=== PATIENT | female | born 1960 | race Caucasian/White ===

== ENCOUNTER 2019-07-05 09:49 | Inpatient (IN) | payer OTHER ==
[~2019-07-05] VITALS: Ht 165.1 cm; Wt 88.9 kg
--- NOTE | 2019-07-05 10:03 | NUR ---
BROUGHT IN BY AMBULANCE AWAKE ALERT ORIENTED,C/O CHEST PAIN WITH SOB STARTED SATURDAY,TODAY AT 8 AM STARTED TO WORSEN, PT WAS SEEN 3 TIMES IN [facility] FOR SAME COMPLAINTS WITHIN 2 WEEKS, LAST WAS ON SATURDAY
[2019-07-05 10:17] LABS: CALCIUM 8.2 mg/dL (8.5-10.1); CARBON DIOXIDE 27.8 mmol/L (21-32); CREATININE SERUM 1.1 mg/dL (0.6-1.0); POTASSIUM SERUM 4.9 mmol/L (3.5-5.1)
[2019-07-05 10:22] LABS: BILIRUBIN TOTAL 0.3 mg/dL (0.20-1.00); TOTAL PROTEIN, SERUM 6.6 g/dL (6.4-8.2)
[2019-07-05 10:25] LABS: ALBUMIN 2.8 g/dL (3.4-5.0); BASOPHIL % 0.7 % (0-2); PLATELET COUNT 338 x10^3mcL (130-400)
[2019-07-05 10:28] LABS: RED CELL DISTRIBUTION WIDTH 16.3 % (11.5-14.5)
--- NOTE | 2019-07-05 11:00 | NUR ---
C/O LOWER BACK PAIN MEDICATED WITH NORCO
--- NOTE | 2019-07-05 14:33 | NUR ---
BLOOD DRAWN BY LAB FOR REPEAT TROPONEN LEVEL, RESTING IN BED, WAITING CT REGAN CHEST
--- NOTE | 2019-07-05 15:30 | NUR ---
TO CT SCAN FOR CT ANGIO TO CHEST,PER FRINGE KNOTTER IV INFILTRATED CANNOT USE IT, RN WENCESLAO TRIED 3 TIMES UNSUCCESSFUL,DR [place] AWARE FOR ADMISSION STATED MINIMAL CHEST PAIN,GUARDIAN FAMILY MEMBER IN SR, RESP. EASY NOT IN DISTRESS
--- NOTE | 2019-07-05 16:10 | NUR ---
PT HAS LT BELOW KNEE AMPUTATION DUE TO DIABETES
--- NOTE | 2019-07-05 16:22 | NUR ---
PT REQUESTED ED TO INFORM LINDSAY OF ADMISSION SO RANCHOEDDIE WONT THROW HER PERSONAL BELONGINGS AWAY. PER KWAME FROM [facility], HER BED AND BELONGINGS WILL HELD UNTIL SHE IS DISCHARGED BACK TO [facility]. PT INFORMED.
[2019-07-05] MEDS ORDERED: LEXAPRO20 MG PO (16:27)
[2019-07-05] MEDS ORDERED: FERROUS SULFAT325 M2 PO (16:27)
[2019-07-05] MEDS ORDERED: PEPCID20 MG PO (16:27)
[2019-07-05] MEDS ORDERED: DUL10S RC (16:28)
[2019-07-05] MEDS ORDERED: LIPI20 PO (16:28)
[2019-07-05] MEDS ORDERED: COLACE100 MG PO (16:29)
[2019-07-05] MEDS ORDERED: PULMICORT0.25 MG/2 (16:29)
[2019-07-05] MEDS ORDERED: BROVANA15 MCG/2 M NEB (16:30)
[2019-07-05] MEDS ORDERED: ABILIFY5 M1 PO (16:30)
[2019-07-05] MEDS ORDERED: ASPIR LOW81 MG (16:31)
[2019-07-05] MEDS ORDERED: PHARMASSURE VI500 MG PO (16:31)
[2019-07-05] MEDS ORDERED: NORCO1 TA2 PO (16:33)
[2019-07-05] MEDS ORDERED: INSULIN ASPART (16:37)
[2019-07-05] MEDS ORDERED: DUONEB (16:39)
[2019-07-05] MEDS ORDERED: VENOFER20 MG/ML IV (16:40)
--- NOTE | 2019-07-05 18:05 | NUR ---
RECEIVED PT FROM ED VIA ALONSO, CAME IN DUE TO CHEST PAIN X1 DAY AND SOB SINCE SATURDAY. AAOX4. DENIES HEADACHE/DIZZINESS. ABLE TO FOLLOW COMMANDS. C/O MILD SOB, O2 SAT=95% ON 2LPM/NC. LUNG SOUNDS DIMINISHED ON AUSCULTATION. DENIES CHEST PAIN/PRESSURE. SR ON THE MONITOR. C/O 7/10 LOWER BACK PAIN. HAS HISTORY OF LEFT BKA. DENIES ABDOMINAL DISCOMFORT. VOIDS. IV SITE ON THE RIGHT THUMB GAUGE 22 IS PATENT AND INTACT. SIDE RAILS UPX2. CALL LIGHT ON REACH. ENDORSED TO PRIMARY NURSE MARCELL FOR CONTINUITY OF CARE
[2019-07-05 18:11] VITALS: BP 139/72
[2019-07-05 18:19] VITALS: Ht 165.1 cm; Wt 88.9 kg
--- NOTE | 2019-07-05 18:53 | NUR ---
SITING UP IN BED HAVING DINNER. MORPHINE 1MG IVP GIVEN FOR BACK PAIN, NO ADVERSE REACTION NOTED. IVF NS AT 50ML/HR INFUSING WELL TO RIGHT THUMP IV SITE. CALL LIGHT INSTRUCTED AND PLACED WITHIN EASY REACH. SIDERAILS UP X2.
[2019-07-05 19:20] VITALS: BP 128/68
--- NOTE | 2019-07-05 20:15 | NUR ---
REPORT GIVEN TO KEVIN DE LEON. ALL QUESTIONS/CONCERNS ADDRESSED. ENDORSING ALL CARE
--- NOTE | 2019-07-05 20:20 | NUR ---
RECEIVED PT FROM HANS RN, PT LAYING DOWN IN BED. NO ACUTE DISTRESS NOTED. PT DENIES ANY PAIN AT THIS TIME. BED AT LOWEST SETTING. SIDE RAILS X2 UP. CALL LIGHT WITHING REACH. [facility]
[2019-07-05 20:23] VITALS: BP 139/72
--- NOTE | 2019-07-05 21:10 | NUR ---
CALLED DR BRADSHAW REGARDING PT HOME MED ARFORMOTERAL. PT FAMILY UNLBLE TO BRING IT FROM HOME, PHARMACY DOES NOT HAVE MED. PER DR BRADSHAW OKAY TO NOT GIVE IT AND ASK FAMILY TO BRING IT TOMORROW. NO NEW ORDERS RECEIVED. WILL CONTINUE TO MONITOR.
--- NOTE | 2019-07-06 00:08 | NUR ---
PT LAYING DOWN IN BED BE WITH EYES CLOSED. BREATHING EVEN AND [id number] ON 2L NC. HOB ELEVATED. NO ACUTE DISTRESS NOTED. BED AT LOWEST SETTING. SIDE RAILS X2 UP. CALL LIGHT WITHING REACH. WILL CONTINUE TO MONITOR.
[2019-07-06 04:48] VITALS: BP 149/63
--- NOTE | 2019-07-06 06:36 | NUR ---
PT SLEPT WELL THROUGHOUT THE NIGHT, BREATHING EVEN AND UNLABORED ON 2L NC. NO ACUTE DISTRESS NOTED. NO SIGNIFICANT CHANGE DURING SHIFT. ALL NEEDS ASSESSED AND ATTENDED TO. IV TO RIGHT THUMB INFUSING NS AT 50ML/HR. SITE WNL. BED AT LOWEST SETTING. SIDE RAILS X2 UP. CALL LIGHT WITHING REACH. WILL ENDORSE CARE TO AM NURSE.
--- NOTE | 2019-07-06 07:01 | NUR ---
PT C/O 06/23 PAIN AT HER BACK, NO ALLEVIATING FACTOR. MEDICATED WITH PRN MORPHINE PER DEC. WILL ENDORSE CARE TO AM NURSE.
[2019-07-06 07:50] LABS: CALCIUM 8.4 mg/dL (8.5-10.1); CARBON DIOXIDE 22.3 mmol/L (21-32); CREATININE SERUM 1.2 mg/dL (0.6-1.0); POTASSIUM SERUM 5.5 mmol/L (3.5-5.1)
[2019-07-06 07:53] LABS: BASOPHIL % 0.1 % (0-2); PLATELET COUNT 330 x10^3mcL (130-400)
[2019-07-06 08:07] VITALS: BP 140/64
[2019-07-06 08:14] LABS: RED CELL DISTRIBUTION WIDTH 15.9 % (11.5-14.5)
--- NOTE | 2019-07-06 09:03 | NUR ---
NORCO GIVEN FOR C/O BACK PAIN 05/23. ACCESS TO RT THUMB INFILTRATED, SWELLING OBSERVED, IV DC'D, COLD PACK PROVIDED AND EXTREMITY ELEVATED ON PILLOW. WILL CONT TO MONITOR.
[2019-07-06 12:05] VITALS: BP 147/70
--- NOTE | 2019-07-06 14:40 | NUR ---
PATIENT C/O SEVERE BACK PAIN AND REQUESTING FOR MORPHINE, NO IV ACCESS YET PATIENT HARD STICK, PATIENT REQUESTING FOR NURSES TO TRY TO PLACE IV. AFTER SEVERAL ATTEMPTS, IV PLACED TO RFA 22G, FLUSHING WELL. MORPHINE GIVEN. WILL CONT TO MONITOR.
--- NOTE | 2019-07-06 15:22 | NUR ---
CONSENT OBTAINED FROM PATIENT FOR MIDLINE CATHETER INSERTION. CHARTED.
[2019-07-06 16:50] VITALS: BP 141/66
--- NOTE | 2019-07-06 16:53 | NUR ---
MIDLINE IV INSERTED TO OVIDIO BY PICCLINE NURSE MARIBELL AT BEDSIDE. TOLERATED WELL. SITE WNL. PER PICC LINE NURSE, NO XRAY NEEDED AND IV OKAY TO USE. TED BOWERS MADE AWARE, ORDER IN PLACE FOR OKAY TO USE MIDLINE IV.
--- NOTE | 2019-07-06 17:15 | NUR ---
PATIENT REPORTS PAIN TO BACK PERSISTENT AND MORPHINE WASN'T VERY EFFECTIVE, NORCO MORE EFFECTIVE FOR PAIN. NORCO GIVEN. WILL CONT TO MONITOR.
--- NOTE | 2019-07-06 18:30 | NUR ---
PATIENT GOING DOWN VIA WHEELCHAIR FOR VQ SCAN, IV HEPLOCKED. NO SIGN OF ACUTE DISTRESS.
--- NOTE | 2019-07-06 19:25 | NUR ---
PATIENT BACK FROM VQ SCAN, TELE PLACED. NS FLUID RESUMED. IV SITES WNL. DENIES PAIN OR DISCOMFORT AT HIS TIME. BEDSIDE REPORT GIVEN TO NOC NURSE TO ENDORSE CARE.
--- NOTE | 2019-07-06 19:50 | NUR ---
PT. JUST ARRIVED BACK TO UNIT, COMPLETED VQ SCAN. PT. IS AWAKE, ALERT, ORIENTED X4. DENIES HEADACHE OR DIZZINESS. BREATH SOUNDS CLEAR THROUGHOUT LUNG HAIDER, BLL SLIGHTLY DIMINISHED. RESP. EVEN, UNLABORED. NO SOB NOTED. PT. ON RA. NSR ON TELE #5. DENIES ANY CHESTPAIN OR DISCOMFORT. PEDAL PULSE TO RLE MODERATE. ABD. SOFT AND ROUND, BOWEL SOUNDS ACTIVE. DENIES NAUSEA. DENIES ABD. PAIN. MIDLINE INTACT TO RUE, PERIPHERAL LINE TO RFA INTACT. IV RESTARTED, NS AT 50CC/HR. RLE BKA INTACT. PT. C/O MILD BACK PAIN. CALL LIGHT PLACED WITHIN REACH.
[2019-07-06 20:55] VITALS: BP 149/88
--- NOTE | 2019-07-06 21:18 | NUR ---
PRN MORPHINE IVP GIVEN FOR C/O LOWER BACK PAIN, 04/22. WILL MONITOR.
--- NOTE | 2019-07-07 01:58 | NUR ---
PT. DOZING INTERMITTENTLY. NO FURTHER COMPLAINTS AT THIS TIME. CALL LIGHT WITHIN REACH. WILL CONTINUE TO MONITOR.
[2019-07-07 05:12] VITALS: BP 150/64
--- NOTE | 2019-07-07 05:46 | NUR ---
PRN NORCO GIVEN FOR C/O LOWER BACK PAIN. PT. WATCHING TV AT THIS TIME. APPEARS COMFORTABLE. NO SIGNS OF DISTRESS. CALL LIGHT WITHIN REACH.
[2019-07-07 09:15] VITALS: BP 150/68
--- NOTE | 2019-07-07 10:53 | NUR ---
AAOX4. CTA BILATERALLY. REMAINS ON RA WITH O2 SAT OF 95%. TELE 5 NSR. NORMOACTIVE BSX4. VOIDS USING COMMODE W/ ASSISTANCE. LIMITED MOVEMENT ACTIVITY, LEFT BKA. PERIPHERAL PULSES PALPABLE, NO EDEMA. COOPERATIVE. MIDLINE CATHETER RUE, PATENT, CDI.
[2019-07-07 11:51] VITALS: BP 176/82
[2019-07-07 13:17] VITALS: BP 176/82
--- NOTE | 2019-07-07 13:18 | NUR ---
AT 1130 IDANIA DE LEON AND I DID THE BLOOD SUGAR CHECK, THE FIST RESULT WAS 427, WE DID A REPEAT AND THE SECOND RESULT WAS 314. I NOTIFIED ANGELA JEAN, AND SHE SAID TO GIVE THE SLIDING SCALE WITH THE 314 BLOOD SUGAR.
[2019-07-07 17:17] VITALS: BP 124/79
--- NOTE | 2019-07-07 18:28 | NUR ---
AAOX4, COOPERATIVE. TELE# 5, NSR. PERIPHERAL PULSES PALPABLE, NO SIGNS OF EDEMA. ON HEPARIN SQ. CTA BILATERALLY, ON RA W/ O2 SAT OF 99. NORMOACTIVE BOWEL SOUNDS, NO STOOL. USE OF BEDSIDE COMMODE, W/ LIMITED MOBILITY DUE TO LEFT BKA. C/O LOWER BACK PAIN THROUGHOUT SHIFT. PATIENT STATES REDUCED PAIN AFTER ADMINISTRATION. MIDLINE CATHETER SITE CDI.
--- NOTE | 2019-07-07 18:32 | NUR ---
NURSING CO-SIGN THE DOCUMENTATION ENTERED BY THE IP HAS BEEN REVIEWED. REVIEWED/CO-SIGNED BY: Ann-Marie Javier DOCUMENTATION DONE BY: IDANIA ESCOBAR RN.
--- NOTE | 2019-07-07 19:45 | NUR ---
PT. AWAKE, ALERT, ORIENTED X4. DENIES HEADACHE OR DIZZINESS. BREATH SOUNDS CLEAR THROUGHOUT LUNG HAIDER, RESP. EVEN, UNLABORED. NO SOB NOTED. PT. ON RA. DENIES CHESTPAIN, NSR ON THE MONITOR. NO EDEMA TO BLE. PEDAL PULSES MODERATE TO RLE. LLE BKA. MIDLINE NOTED TO OVIDIO. ABD. SOFT AND ROUND, BOWEL SOUNDS ACITVE. DENIES ABD. PAIN, DENIES NAUSEA. CALL LIGHT WITHIN REACH.
[2019-07-07 20:41] VITALS: BP 143/68
[2019-07-08] VITALS (7 sets, daily range): BP systolic 150–186; BP diastolic 58–87
--- NOTE | 2019-07-08 02:31 | NUR ---
PT. AWAKENED AND ASSISTED TO BEDSIDE COMMODE AND BACK TO BED. C/O PAIN, 7/10 IN LOWER BACK. PRN MORPHINE IVP GIVEN ORDERED. WILL MONITOR.
--- NOTE | 2019-07-08 05:36 | NUR ---
PT. DOZING INTERMITTENTLY. BLOOD SUGAR CHECKED. MEDICATIONS GIVEN. NO C/O PAIN AT THIS TIME. IVF INFUSING WELL. CALL LIGHT WITHIN REACH. WILL ENDORSE PT.CARE TO INCOMING NURSE.
[2019-07-08 06:47] LABS: BASOPHIL % 0.1 % (0-2); PLATELET COUNT 301 x10^3mcL (130-400)
[2019-07-08 06:53] LABS: CALCIUM 8.3 mg/dL (8.5-10.1); CARBON DIOXIDE 21.7 mmol/L (21-32); CREATININE SERUM 1.2 mg/dL (0.6-1.0); POTASSIUM SERUM 5.1 mmol/L (3.5-5.1)
[2019-07-08 06:57] LABS: RED CELL DISTRIBUTION WIDTH 15.8 % (11.5-14.5)
--- NOTE | 2019-07-08 07:20 | NUR ---
RECEIVED PT FROM NIGHT NURSE. PT IS LAYING DOWN IN BED WITH HOB UP RESTING. PT LOOKS TO BE IN NO ACUTE DISTRESS AT THIS TIME. IV SITE PATENT WITH NO SIGNS OF ERYTHEMA OR SWELLING WITH IV FLUIDS INFUSING. RESPIRATIONS EVEN AND UNLABORED ON ROOM AIR. TELE MONITOR 5 PRESENT. CALL LIGHT WITHIN REACH. WILL CONTINUE TO MONITOR.
--- NOTE | 2019-07-08 11:20 | NUR ---
PT COMPLAINING OF PAIN 8/10 TO THE BACK. PT REQUESTING PAIN MEDICATION. MADE PT COMFORTABLE IN BED, WILL MEDICATE ACCORDING TO EMAR.
--- NOTE | 2019-07-08 11:45 | NUR ---
TED MILLER MADE AWARE OF PT'S HIGH BLOOD PRESSURE
--- NOTE | 2019-07-08 13:00 | NUR ---
PT IS LAYING DOWN IN BED RESTING. PT LOOKS TO BE IN NO ACUTE DISTRESS, PT STATES PAIN MEDICAITON EFFECTIVE AND IS 5/10 AND IS TOLERABLE AT THIS TIME. RECHECKED BLOOD PRESSUER AND HAS DECREASED AND IS AT 159/87. WILL CONTINUE TO MONITOR
--- NOTE | 2019-07-08 18:30 | NUR ---
PT IS SITTING UP IN BED. PT LOOKS TO BE IN NO ACUTE DISTRESS AT THIS TIME. PT REQUESTING TO HAVE SHEETS CHANGED. PT ABLE TO MOVE TO BEDSIDE CHAIR WITH ASSISTANCE. CHANGED PT'S SHEETS AND GOWN AND ASSISTED PT BACK TO BED. PT MADE COMFORTABLE IN BED. IV SITE PATENT WITH NO SIGNS OF ERYTHEMA OR SWELLING WITH IV FLUIDS INFUSING. BED IN LOWEST POSITION, CALL LIGHT WITHIN REACH. WILL ENDORSE TO ONCOMING SHIFT.
--- NOTE | 2019-07-08 19:15 | NUR ---
RECEIVED PT FROM PREVIOUS SHIFT NURSE. PT AOX4, DENIES CAMPOS/DIZZINESS. ON TELE #5, NSR, HR 82. DENIES CP/PRESSURE. DENIES SOB/DIFFICULTY BREATHING, ON RA. L. BKA WITH GEN WEAKNESS. IV TO OVIDIO (MIDLINE), INTACT AND PATENT. BED IN LOWEST POSITION. CALL LIGHT WITHIN REACH. WILL CONTINUE TO MONITOR.
--- NOTE | 2019-07-08 21:13 | NUR ---
PT REPORTS FEELING MICHOACANO, REQUESTING SOMETHING TO HELP HER RELAX. DR. SCOTTED PAGED. AWAITING CALL BACK.
--- NOTE | 2019-07-09 02:52 | NUR ---
PT RESTING IN BED. RR EVEN AND UNLABORED. IN NO ACUTE DISTRESS. CALL LIGHT WITHIN REACH. BED IN LOWEST POSITION. WILL CONTINUE TO MONITOR.
[2019-07-09 05:31] VITALS: BP 172/75
--- NOTE | 2019-07-09 06:26 | NUR ---
PT BP 172/75 HR 66, DENIES ANY PAIN/DISCOMFORT AT THIS TIME. DR. EVANGELISTA NOTIFIED.
--- NOTE | 2019-07-09 07:22 | NUR ---
REPORT TAKEN AT THE BEDSIDE FROM FRUIT BAR MAKER NURSE, PATIENT AWAKE AND ALERT, IN NO DISTRESS AT THIS TIME, WILL CONTINUE TO MONITOR
[2019-07-09 08:25] VITALS: BP 153/74
[2019-07-09 11:15] VITALS: BP 153/74
[2019-07-09 12:01] VITALS: BP 169/82
[2019-07-09 12:46] VITALS: BP 169/82
--- NOTE | 2019-07-09 14:07 | NUR ---
REPORT GIVEN TO RONNIE CORDOVA [facility], [place] FLOOR TIME SCHEDULED FOR [phone]
--- NOTE | 2019-07-09 14:22 | NUR ---
MIDLINE TO RIGHT UPPER ARM TO BE LEFT IN PLACE PER TED WALTON.
--- NOTE | 2019-07-09 14:47 | NUR ---
REPORT GIVEN TO [facility] AT THE BEDSIDE, PATIENT SIGNED DC PAPERWORK, BELONGINGS AT THE BEDSIED WITH THE PATIENT AND GIVEN TO TRANSPORT TEAM. TELE RETURNED TO [place] [facility].
--- NOTE | 2019-07-09 15:02 | NUR ---
PHYSICAL THERAPY DAILY NOTES CO-SIGN All documentation done by the Computer Project Manager for 07/09/19 has been reviewed. I agree with the documentation. Reviewed/Co-Signed by: Phyllis Donis PT Documentation Done by:ESTEE ALEXANDRE PTA
== END 2019-07-09 14:50 | DRG 140 ==
LOC: ED 09:49 → DU 16:47
PROVIDERS: General Practice; ADMIT Internal Medicine
DX: J44.1 Chronic obstructive pulmonary disease with (acute) exacerbation (principal); E11.22 Type 2 diabetes mellitus with diabetic chronic kidney disease; E44.0 Moderate protein-calorie malnutrition; I13.0 Hypertensive heart and chronic kidney disease with heart failure and stage 1 through stage 4 chronic kidney disease, or unspecified chronic kidney disease; E66.01 Morbid (severe) obesity due to excess calories; I50.32 Chronic diastolic (congestive) heart failure; N18.2 Chronic kidney disease, stage 2 (mild); Z68.34 Body mass index [BMI] 34.0-34.9, adult; Z88.8 Allergy status to other drugs, medicaments and biological substances; Z89.512 Acquired absence of left leg below knee; Z71.3 Dietary counseling and surveillance; Z90.710 Acquired absence of both cervix and uterus
CPT/HCPCS: 78598; 82962; 83880; 85378; 97110-GP; 97116-GP; A9540; C1751; C9113; G0378; J1644; J2060; J2270; J2920; J7030; Q0092; Q9967